=== PATIENT | male | born 1950 | race Caucasian/White ===

== ENCOUNTER 2020-05-11 07:06 | Day surgery (SDC) | payer MEDICARE ==
[2020-05-07 14:43] VITALS: BMI 28.5
[~2020-05-11 07:06] MED LIST: LACTATED RINGERS 1,000 ML IV SCH
[2020-05-11 07:48] VITALS: RESP 16; TEMP 96.8
[2020-05-11 07:49] LABS: Glucose,Whole Blood 103 mg/dL (75-99)
[2020-05-11] MEDS ORDERED: LIDOCAINE 1% (10MG/ML) FOR IV START INTRADERMA ONE (07:49)
[2020-05-11] MEDS ORDERED: PROPOFOL 10 MG/ML 20 ML VIAL IV ONE (08:02)
--- NOTE | 2020-05-11 08:42 | P.PCN ---
Date of Procedure: 05/11/20 Description of Procedure: Brief history: Patient is a pleasant 69-year-old male presenting for outpatient esophagogastroduodenoscopy and colonoscopy for evaluation of GERD and screening malignant neoplasm of the colon. He reports a long-standing history of GERD currently on omeprazole therapy. He reports the sensation of being full and some epigastric abdominal discomfort. He reports last colonoscopy 6 years ago. Family history of colon cancer in his brother. Procedure performed: Esophagogastroduodenoscopy with biopsy Colonoscopy with polypectomy Estimated blood loss: Minimal. Preoperative diagnosis: GERD, screening for malignant neoplasm of the colon, last colonoscopy 6 years ago, family history of colon cancer in his brother Anesthesia: MAC Procedure: After informed consent was obtained from the patient was brought into the endoscopy unit and IV sedation was administered by anesthesia under continuous monitoring. Initially upper endoscopy was done. The Olympus GF 190 video endoscope was inserted into the mouth and esophagus intubated without any difficulty and was gradually advanced into the stomach and duodenum and carefully examined. The bulb and second part of the duodenum appeared normal and biopsied. The scope was then withdrawn into the stomach adequately insufflated with air and upon careful examination the antrum and body, cardia and fundus appeared normal, except for patchy erythema in the antrum and body suggestive of mild gastritis biopsies taken. The scope was then withdrawn into the esophagus. The GE junction was located at 36 cm to the incisors and biopsied. 2 cm hiatal hernia noted. It appeared regular with no erythema er osions or ulcerations. Rest of the esophagus appeared normal. Patient tolerated the procedure well. At this time the patient continued to remain sedation. Initial digital rectal examination was normal. Olympus CF 190 video colonoscope was then inserted into the rectum and gradually advanced to the cecum without any difficulty. Careful examination was performed as the scope was gradually being withdrawn. The prep was excellent. The cecum, ascending colon, transverse colon, descending colon, sigmoid colon and rectum appeared normal, with a large amount of small and large mouth diverticula in the left colon. Diminutive 2 mm transverse colon polyp removed with cold forcep polypectomy. Retroflexion was performed in the rectum and no lesions were noted, low-grade internal hemorrhoids. Patient tolerated the procedure well. Impression: 1. Mild gastritis. Small Hiatal hernia. Biopsies of the duodenum, antrum body and GE junction. 2. Diminutive transverse colon polyp removed with cold forcep polypectomy. Moderate left colonic diverticulosis. Internal hemorrhoids. Recommendations: Findings of this examination were discussed with the patient as well as his family. Okay to resume diet. Okay to resume medications. Await pathology from biopsies and polypectomy. Recommend initiation of MiraLAX therapy for constipation as needed. Recommend repeat colonoscopy in 5 years for family history of colon cancer.
[2020-05-11] MEDS ORDERED: IV FLUID CONTINUATION 500 ML IV ONE (08:45)
[2020-05-11 09:02] VITALS: BP 131/74; PULSE 64
== END 2020-05-11 09:26 | disposition home or self-care (01) ==
LOC: ORWHC2ENDO 07:06
PROVIDERS: ATTEND Internal Medicine
DX: K29.50 Unspecified chronic gastritis without bleeding (principal); K44.9 Diaphragmatic hernia without obstruction or gangrene; K21.9 Gastro-esophageal reflux disease without esophagitis; K57.30 Diverticulosis of large intestine without perforation or abscess without bleeding; D12.3 Benign neoplasm of transverse colon; K64.8 Other hemorrhoids; E78.5 Hyperlipidemia, unspecified; E11.9 Type 2 diabetes mellitus without complications; Z12.11 Encounter for screening for malignant neoplasm of colon; Z80.0 Family history of malignant neoplasm of digestive organs; Z88.1 Allergy status to other antibiotic agents; Z79.84 Long term (current) use of oral hypoglycemic drugs; Z79.899 Other long term (current) drug therapy; Z79.82 Long term (current) use of aspirin
CPT/HCPCS: 88305; 45380; 43239; J2704

== ENCOUNTER 2020-08-08 01:29 | Observation (INO) | payer MEDICARE ==
[2020-08-08] MEDS ORDERED: MORPHINE SULFATE 4 MG/ML SYRINGE IV STA ×2 (02:08→04:28)
[2020-08-08] MEDS ORDERED: ASPIRIN 81 MG PO STA (02:08)
[2020-08-08] MEDS ORDERED: NITROGLYCERIN SL TABS 0.4 MG TAB SUBLINGUAL STA (02:08)
[2020-08-08] MEDS ORDERED: ONDANSETRON 4 MG/2 ML VIAL IVP STA (02:42)
[2020-08-08 02:52] LABS: Basophils # (A) 0.1 k/uL (0-0.2); Basophils % (A) 1 %; Eosinophils # (A) 0.5 k/uL (0-0.7); Eosinophils % (A) 5 %; HCT 43.6 % (39.0-53.0); HGB 14.4 gm/dL (13.0-17.5); Lymphocytes # (A) 1.4 k/uL (1.0-4.8); Lymphocytes % (A) 15 %; MCH 30.4 pg (25.0-35.0); MCHC 32.9 g/dL (31.0-37.0); MCV 92.3 fL (80.0-100.0); Mean Platelet Volume 6.9; Monocytes # (A) 0.7 k/uL (0-1.0); Monocytes % (A) 7 %; Neutrophils # (A) 6.5 k/uL (1.3-7.7); Neutrophils % (A) 70 %; Platelet Count 221 k/uL (150-450); RBC 4.73 m/uL (4.30-5.90); RDW 13.6 % (11.5-15.5); WBC 9.3 k/uL (3.8-10.6)
[2020-08-08 03:01] LABS: ALT 25 U/L (4-49); AST 25 U/L (17-59); African American GFR (CKD) >90 (>60 ml/min/1.73 sqM); Albumin 4.4 g/dL (3.5-5.0); Alkaline Phosphatase 65 U/L (38-126); Amylase 60 U/L (30-110); Anion Gap 11 mmol/L; Blood Urea Nitrogen 13 mg/dL (9-20); Calcium 9.6 mg/dL (8.4-10.2); Carbon Dioxide 24 mmol/L (22-30); Chloride 103 mmol/L (98-107); Glucose 125 mg/dL (74-99); INR 0.9 (<1.2); Lipase 101 U/L (23-300); Magnesium 1.6 mg/dL (1.6-2.3); Non-African American GFR(CKD) 89 (>60 ml/min/1.73 sqM); Partial Thromboplastin Time 22.6 sec (22.0-30.0); Prothrombin Time 10.2 sec (9.0-12.0); Sodium 138 mmol/L (137-145); Total Bilirubin 0.5 mg/dL (0.2-1.3); Total Protein 7.1 g/dL (6.3-8.2)
--- NOTE | 2020-08-08 03:31 | XR ---
EXAM: XR Chest, 1 View CLINICAL HISTORY: ITS.REASON XR Reason: chest pain TECHNIQUE: Frontal view of the chest. COMPARISON: No relevant prior studies available. FINDINGS: Lungs: Mild linear densities in both lung bases. Pleural space: No pneumothorax or pleural effusion is seen. Heart: The cardiac silhouette is mildly enlarged. Mediastinum: Unremarkable. Bones/joints: Unremarkable. Vasculature: Vascular and interstitial markings are prominent centrally. Upper abdomen: No pneumoperitoneum under the diaphragm. IMPRESSION: Mild bibasilar atelectasis or fibrosis. No acute airspace infiltrate is seen. Mild cardiomegaly without overt CHF.
[2020-08-08] MEDS ORDERED: NITROGLYCERIN OINT 1 INCH/GM PACKET TOPICAL STA (04:28)
[2020-08-08] MEDS ORDERED: NITROGLYCERIN SL TABS 0.4 MG TAB SUBLINGUAL PRN (05:07)
[2020-08-08] MEDS ORDERED: ENOXAPARIN 40 MG/0.4 ML SYRINGE SQ STA (05:07)
[2020-08-08] MEDS ORDERED: TEMAZEPAM 30 MG CAP PO PRN (05:10)
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
[2020-08-08] MEDS ORDERED: HEPARIN SODIUM,PORCINE 10,000 UNIT in SODIUM CHLORIDE 0.9% 1,000 ML IRRIGATION PRN (07:00)
[2020-08-08] MEDS ORDERED: HEPARIN SODIUM,PORCINE 2,500 UNIT in SODIUM CHLORIDE 0.9% 250 ML IRRIGATION PRN (07:00)
[2020-08-08] MEDS ORDERED: PANTOPRAZOLE 40 MG TABLET PO SCH (07:30)
[2020-08-08] MEDS: ATORVASTATIN 20 MG TAB PO SCH (08:23)
[2020-08-08] MEDS ORDERED: metFORMIN 500 MG TAB PO SCH (09:00)
[2020-08-08] MEDS: MORPHINE SULFATE 4 MG/ML SYRINGE IV PRN ×2 (09:03→16:52)
[2020-08-08] MEDS ORDERED: ALPRAZolam 0.5 MG TAB PO PRN (09:35)
[2020-08-08] MEDS ORDERED: SODIUM CHLORIDE 0.9% 1,000 ML in EMPTY BAG 1 BAG IV ONE (09:35)
[2020-08-08] MEDS ORDERED: HEPARIN SODIUM,PORCINE 30 ML 30 ML ONE (11:53)
[2020-08-08] MEDS ORDERED: HEPARIN SODIUM 1,000 UN/ML (10ML VL) ONE (11:53)
[2020-08-08] MEDS ORDERED: LIDOCAINE 1% INJ 10MG/ML (20 ML MDV) ONE (11:53)
[2020-08-08] MEDS ORDERED: VERAPAMIL 2.5 MG/ML 2 ML AMP ONE (11:53)
[2020-08-08] MEDS ORDERED: fentaNYL (PF) 50 MCG/ML 2 ML AMP ONE (11:54)
[2020-08-08] MEDS ORDERED: IV FLUID CONTINUATION 1,000 ML IV ONE (12:00)
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
[2020-08-08] MEDS ORDERED: fentaNYL (PF) 50 MCG/ML 2 ML AMP IV ONE (12:20)
[2020-08-08] MEDS ORDERED: NITROGLYCERIN SL TABS 0.4 MG TAB SUBLINGUAL ONE ×2 (12:20→12:22)
[2020-08-08] MEDS ORDERED: MIDAZOLAM 2 MG/2 ML VIAL IV ONE (12:20)
[2020-08-08] MEDS ORDERED: LIDOCAINE 1% INJ 10MG/ML (20 ML MDV) SQ ONE (12:27)
[2020-08-08] MEDS ORDERED: VERAPAMIL SYRINGE (5 MG/10 ML) INTRAARTER ONE (12:30)
[2020-08-08] MEDS: PANTOPRAZOLE 40 MG/10 ML VIAL IVP SCH (12:40)
[2020-08-08] MEDS: INSULIN ASPART (NovoLOG) 100 UNIT/ML VIAL SQ SCH ×2 (12:40→17:34)
[2020-08-08] MEDS ORDERED: IOPAMIDOL-370 125ML BTL INJ ONE (12:46)
[2020-08-08] MEDS ORDERED: RX INFO: IV CONTRAST WAS GIVEN 1 EACH MISC MISCELLANE PRN (12:52)
[2020-08-08] MEDS: SODIUM CHLORIDE 0.9% 1,000 ML IV SCH (13:26)
[2020-08-08 15:05] LABS: Amylase 47 U/L (30-110); Lipase 211 U/L (23-300)
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
--- NOTE | 2020-08-08 16:07 | P.CARDCATH ---
Date of Procedure: 08/08/20 Preoperative Diagnosis: Unstable angina Postoperative Diagnosis: Minimal coronary artery disease Procedure(s) Performed: Left heart catheterization without left ventriculography Description of Procedure: HISTORY: This is a 70-year-old gentleman with history of hyperlipidemia and type 2 diabetes mellitus who was admitted to the hospital with recurrent chest pain relieved with nitroglycerin CONSENT:I have discussed the risks, benefits and alternative therapies for the above-mentioned procedure and for both sedation/analgesia as well as necessary blood product administration, if indicated, as they pertain to this patient. T he patient has indicated understanding and acceptance of the risks and procedures discussed. PROCEDURE: Patient was brought to the lab in a fasting state. Patient was given some IV sedation. The right wrist is infiltrated with lidocaine and right femoral artery was entered using Seldinger technique. A 6-Macedonian catheter was left in place and selective coronary arteriography was performed. Patient tolerated the procedure well. TR band l was applied for hemostasis. No immediate complications were noted and patient was transferred to [facility] in a stable condition Conscious Sedation: Versed 2mg Fentanyl 50 g Duration 22minutes HEMODYNAMICS: The aortic pressure is about 130/70 SELECTIVE CORONARY ARTERIOGRAPHY: LEFT MAIN: Normal length and free of occlusive disease THE LEFT ANTERIOR DESCENDING CORONARY ARTERY: . Fair caliber vessel with minimal intimal plaque THE LEFT CIRCUMFLEX AND IS CORONARY ARTERY: Good caliber vessel without any significant obstructive disease THE RIGHT CORONARY ARTERY: Good caliber vessel and nondominant. Mild intimal plaque and 20-30% stenosis in the proximal and midportion LEFT VENTRICULOGRAPHY: Performed FINAL IMPRESSION: . Mild coronary artery disease. No critical lesions PLAN: Continue medical therapy and this factor modification. Consider GI evaluation and computed tomography scan of the chest, if patient continues to have chest pain PROGNOSIS: . Fair
[2020-08-08] MEDS: SUCRALFATE 1 GM TAB PO SCH (16:52)
[2020-08-08 17:24] LABS: Glucose,Whole Blood 143 mg/dL (75-99)
[2020-08-08] MEDS ORDERED: NON FORMULARY DRUG (Metformin Hcl Er 500 MG Tab.Er.24h) PO SCH (17:30)
[2020-08-08] MEDS: METOPROLOL TARTRATE 25 MG TAB PO SCH (20:31)
[2020-08-09] MEDS: SODIUM CHLORIDE 0.9% 1,000 ML IV SCH (05:20)
[2020-08-09] MEDS: INSULIN ASPART (NovoLOG) 100 UNIT/ML VIAL SQ SCH ×2 (07:37→12:06)
[2020-08-09] MEDS: ATORVASTATIN 20 MG TAB PO SCH ×2 (08:19→08:20)
[2020-08-09] MEDS: PANTOPRAZOLE 40 MG/10 ML VIAL IVP SCH (08:19)
[2020-08-09] MEDS: METOPROLOL TARTRATE 25 MG TAB PO SCH (08:20)
[2020-08-09] MEDS: SUCRALFATE 1 GM TAB PO SCH (08:20)
[2020-08-09] MEDS ORDERED: ASPIRIN 81 MG PO SCH (09:00)
[2020-08-09] MEDS ORDERED: ASPIRIN 325 MG TAB PO SCH (09:00)
[2020-08-09] MEDS ORDERED: LORATADINE 10 MG TAB PO SCH (09:00)
--- NOTE | 2020-08-09 09:23 | CONS ---
CONSULTATION DATE OF SERVICE: 08/09/2020 REQUESTING PHYSICIAN: Dr. Mac. REASON FOR CONSULTATION: Severe chest pain. HISTORY OF PRESENT ILLNESS: The patient is a 70-year-old pleasant white male with history of hypertension, hyperlipidemia, diabetes mellitus, as well as longstanding history of GERD for almost 20 years duration, admitted to the hospital with severe chest pain that was pleuritic in nature and started 2 days ago. He was having dinner with his friends and developed severe midsternal chest pain, worse with deep inspiration. He came to the emergency room and subsequently he was admitted to the hospital and was seen by Cardiology and cardiac catheterization yesterday that showed mild coronary artery disease. GI is consulted to rule out any GI causes for his symptoms. This morning he is feeling much better. He still has some pain with deep inspiration, but much better than before. He denies any heartburn. He reports no dysphagia or odynophagia. He has a longstanding history of GERD and he usually takes Nexium 40 mg daily for almost 20 years duration and medications have been working reasonably well. He did have an EGD and colonoscopy by Dr. Pineda in April of 2020 that revealed mild antral gastritis but no evidence of esophagitis or peptic ulcer disease. Also there was evidence of small hiatal hernia noted. He had small colon polyps removed. PAST MEDICAL HISTORY: Significant for diabetes mellitus, hypertension, gastroesophageal reflux disease and hyperlipidemia. MEDICATIONS: At home, Glucophage, Crestor, omeprazole, Zyrtec, and aspirin. ALLERGIES: ATORVASTATIN, AMOXICILLIN, MOLD. SOCIAL HISTORY: No smoking. Socially drinks alcohol. FAMILY HISTORY: Mother unremarkable. Brother had colon cancer. REVIEW OF SYSTEMS: CARDIOPULMONARY: No chest pain or shortness of breath. : No dysuria or hematuria. MUSCULOSKELETAL: Unremarkable. SKIN: Unremarkable. ENDOCRINE: Unremarkable PSYCHIATRIC: Unremarkable. NEUROLOGY: Unremarkable. ENT/VISION: Unremarkable. CONSTITUTIONAL: No recent weight loss. GI: As mentioned above. PAST SURGICAL HISTORY: He did have EGD and colonoscopy in april of 2020, left knee arthroscopy. PHYSICAL EXAMINATION: GENERAL: He appears comfortable. No apparent distress. VITAL SIGNS: Stable. Blood pressure is 151/86, pulse rate 79, temperature 98. HEENT: Examination unremarkable. Conjunctivae are pink. Sclerae anicteric. Oral cavity no lesions. NECK: No JVD or lymph node enlargement. CHEST: Clear to auscultation. HEART: Regular rate and rhythm. ABDOMEN: Soft, it was nontender, nondistended. Bowel sounds are positive. No organomegaly. EXTREMITIES: No pedal edema. SKIN: No rashes. NEURO: She is alert and oriented x3. No focal deficits. LABS: WBC 9.3, hemoglobin 14, platelets normal. AST, ALT, T-bilirubin, alkaline phosphatase are within normal limits. Coronavirus PCR is negative. Cardiac catheterization yesterday showed mild coronary artery disease. IMPRESSION: This patient presented to the hospital with severe atypical chest pain that happened 2 nights ago. The pain was mostly in the midsternal area, pleuritic in nature and was very intense. Troponins were negative. Cardiac catheterization was performed on an emergency basis which showed mild coronary artery disease. His symptoms are gradually improving. Serum transaminases are within normal limits. The patient has a longstanding history of GERD and possibility of atypical GERD cannot be excluded. Also, possibility of gallbladder pathology needs to be considered. RECOMMENDATIONS: 1. Increase the Protonix to 40 mg twice daily. 2. Continue with a heart healthy diet. 3. No need for EGD at this time. 4. We will also obtain ultrasound of the gallbladder to rule out any gallstones. 5. Monitor the patient closely and will follow with you. Thank you for this consultation. MMODL / IJN: [id number] /
[2020-08-09 09:53] LABS: Chol/HDL Ratio 3.89; LDL Cholesterol,Calculated 68.2 mg/dL (0.0-131.0); VLDL Calculation 32.8 mg/dL (5.00-40.00)
--- NOTE | 2020-08-09 12:43 | P.DS ---
Providers Date of admission: 08/08/20 05:07 Expected date of discharge: 08/09/20 Attending physician: Luis E Mac Consults: 08/08/20 05:07 Consult Physician Routine Consulting Provider: Bret Wayne Consult Reason/Comments: chest pain Do you want consulting provider notified?: Yes 08/08/20 12:54 Consult Physician Routine Consulting Provider: Porsche Vora Consult Reason/Comments: GI reflux Do you want consulting provider notified?: Yes Primary care physician: Luis E Mac Hospital Course: This is a 70-year-old male with a previous medical history significant for hyperlipidemia, diabetes mellitus type 2, history of GERD with esophagitis, patient was in his usual state of health about yesterday when he went to have a dinner with his friends consistent of the official and rise and he had 2 glasses of wine prior to that, he still developed to have a significant mid sternal chest pain and he did not take enough deep breath at that time, associated with increased shortness of breath, patient decided to leave the dinner and he went back home and he took 5 Rolaids along with Coke and he did not feel any better, he decided come to the emergency burn for evaluation, patient appears to be a bit apprehensive take, he is complaining of increased pain in the middle sternal area radiating up to the neck, associated with minimal shortness breath, he has no coughing, he has almost pleurisy and he is not able to take enough deep breath, patient is feeling full in the stomach, and he had a good bowel movement yesterday, he has no hemoptysis or hematochezia, he stated that he had a stress test many years ago and was negative, patient was seen in the emergency department had a twelve-lead EKG that showed sinus rhythm with multiple PVCs and a first-degree AV block, back negative, chest x-ray did not show any evidence of acute of normalities except for cardiomegaly, I believe the patient will need to have a CT angiography of the chest and abdomen to rule out any aortic dissection we'll discontinue his metformin at this time, patient was seen already in consultation by cardiology would need to go for left heart catheterization for further evaluation. Patient stated that he did travel to his constant about a week and a half ago and he drove all the way but he had no symptoms after that. 08/09: Patient underwent left heart catheterization yesterday 08/08/2020 that showed minimal intimal plaque in the LAD, and renal disease 20-30% and RCA, patient was started on Protonix 40 mg IV push every 24 hours, he was seen in consultation by Gastroenterology we added Carafate 1 g orally twice every day, he is feeling a lot better today, he is scheduled to go for ultrasound of the gallbladder, and the patient can be discharged home with follow-up with us as an outpatient. Discharge diagnoses: 1. Chest pain noncardiac status post left heart catheterization that showed minimal disease in the RCA 20-30%. 2. Severe GERD with esophagitis and ventral hernia. 3. Hypertension and hypertensive cardiovascular disease. 4. Hyperlipidemia. 5. Diabetes mellitus type 2. 6. Overweight. Patient Condition at Discharge: Good Plan - Discharge Summary Discharge Rx Participant: No New Discharge Prescriptions: No Action Rosuvastatin [Crestor] 10 mg PO DAILY Omeprazole 40 mg PO DAILY Aspirin 81 mg PO DAILY metFORMIN HCL ER [Glucophage Xr] 500 mg PO BID-W/MEALS Cetirizine HCl [Zyrtec] 10 mg PO DAILY Discharge Medication List Aspirin 81 mg PO DAILY 05/07/20 [History] Omeprazole 40 mg PO DAILY 05/07/20 [History] Rosuvastatin [Crestor] 10 mg PO DAILY 05/07/20 [History] Cetirizine HCl [Zyrtec] 10 mg PO DAILY 08/08/20 [History] metFORMIN HCL ER [Glucophage Xr] 500 mg PO BID-W/MEALS 08/08/20 [History] Follow up Appointment(s)/Referral(s): Luis E Mac MD [Primary Care Provider] - 1-2 days Lexi Romo MD [STAFF PHYSICIAN] - 1 Week Patient Instructions/Handouts: Chest Pain (ED)
--- NOTE | 2020-08-09 13:14 | P.PN ---
Subjective Progress Note Date: 08/09/20 HISTORY OF PRESENT ILLNESS: Patient underwent cardiac cath yesterday revealing mild coronary artery disease with no nuchal lesions. Patient examined at this point the bedside. He denies chest pain or pressure. Denies shortness of breath. Vital signs are stable. PHYSICAL EXAM: VITAL SIGNS: Reviewed. GENERAL: Well-developed in no acute distress. NECK: Supple. No JVD or thyromegaly LUNGS: Respirations even and unlabored. Lungs essentially clear to auscultation bilaterally. HEART: Regular rate and rhythm. S1 and S2 heard. EXTREMITIES: Normal range of motion. No clubbing or cyanosis. Peripheral pulses intact. No lower extremity edema. Right radial cath site with pulse present ASSESSMENT: Chest pain Mild nonobstructive coronary artery disease Diabetes mellitus Hyperlipidemia PLAN: Continue current cardiac medications Patient is stable for discharge home today from a cardiac standpoint He is to follow up on an outpatient basis Nurse practitioner note has been reviewed by physician. Signing provider agrees with the documented findings, assessment, and plan of care. Objective - Vital Signs Vital signs: Vital Signs Temp 98.3 F 08/09/20 07:00 Pulse 79 08/09/20 07:37 Resp 16 08/09/20 07:37 BP 151/75 08/09/20 07:00 Pulse Ox 96 08/09/20 07:14 Intake & Output 08/08/20 08/09/20 08/09/20 18:59 06:59 18:59 Intake Total 200 Balance 200 Intake: IV 200 Other: # Voids 2 3 3 - Labs CBC & Chem 7: 08/08/20 02:12 08/08/20 02:12 Labs: Abnormal Lab Results - Last 24 Hours (Table) 08/08/20 08/08/20 Range/Units 02:12 17:22 POC Glucose (mg/dL) 143 H (75-99) mg/dL Triglycerides 164.0 H (0.0-149.0) mg/dL HDL Cholesterol 35.0 L (40.0-60.0) mg/dL
[2020-08-09 15:45] VITALS: BP 127/75; PULSE 58; RESP 18; TEMP 97.9
--- NOTE | 2020-08-09 15:45 | US ---
EXAMINATION TYPE: US gallbladder DATE OF EXAM: 08/09/2020 COMPARISON: NONE CLINICAL HISTORY: r/o gallstones.. Exam done portable. EXAM MEASUREMENTS: Liver Length: 14.6 cm Gallbladder Wall: 0.2 cm CBD: 0.4 cm Right Kidney: 11.7 x 5.2 x 5.5 cm Difficult and limited study due to patient body habitus and overlying bowel gas Pancreas: obscured by overlying midline bowel gas Liver: scanned intercostally, visualized portions appear wnl Gallbladder: wnl. No definite gallstones, gallbladder wall thickening or pericholecystic fluid. Evidence for sonographic Saini's sign: no CBD: wnl Right Kidney: wnl IMPRESSION: No significant abnormality.
[2020-08-09] MEDS ORDERED: PANTOPRAZOLE 40 MG/10 ML VIAL IVP SCH (21:00)
[2020-08-10] MEDS ORDERED: LOSARTAN 50 MG TAB PO SCH (09:00)
== END 2020-08-09 16:56 | disposition home or self-care (01) ==
LOC: EC 01:29 → 6NMEDSUR 05:07
PROVIDERS: ADMIT Internal Medicine; ATTEND Internal Medicine
DX: R07.89 Other chest pain (principal); K21.00 Gastro-esophageal reflux disease with esophagitis, without bleeding; K43.9 Ventral hernia without obstruction or gangrene; R09.1 Pleurisy; I11.9 Hypertensive heart disease without heart failure; I49.3 Ventricular premature depolarization; I44.0 Atrioventricular block, first degree; E11.9 Type 2 diabetes mellitus without complications; I25.10 Atherosclerotic heart disease of native coronary artery without angina pectoris; K44.9 Diaphragmatic hernia without obstruction or gangrene; E78.5 Hyperlipidemia, unspecified; E66.3 Overweight; Z68.29 Body mass index [BMI] 29.0-29.9, adult; Z20.822 Contact with and (suspected) exposure to COVID-19; Z79.82 Long term (current) use of aspirin; Z79.84 Long term (current) use of oral hypoglycemic drugs; Z79.899 Other long term (current) drug therapy; Z88.0 Allergy status to penicillin; Z88.8 Allergy status to other drugs, medicaments and biological substances; Z91.048 Other nonmedicinal substance allergy status; Z87.891 Personal history of nicotine dependence; Z87.09 Personal history of other diseases of the respiratory system; Z72.89 Other problems related to lifestyle; Z98.890 Other specified postprocedural states; Z86.010 Personal history of colon polyps; Z87.19 Personal history of other diseases of the digestive system; Z82.49 Family history of ischemic heart disease and other diseases of the circulatory system; Z80.0 Family history of malignant neoplasm of digestive organs
CPT/HCPCS: 96372; 93005 ×2; 96376; 96374; 96375; 99285; 36415; 94760; 93454; 85379; 80061; 80053; 82150; 83690; 83735; 84484; 85025; 85610; 85730; 87635; 71045; 76705; G0378 ×2; C1894; C1769; J2250; J2270; J2405; J2001; J1650; J3010; J1644; C9113; Q9967

== ENCOUNTER → 2023-07-07 | Outpatient (CLI) | payer MEDICARE ==
--- NOTE | 2023-07-07 18:06 | CA ---
Transthoracic Echo Report Name: Orlando Campos Age: 72 Gender: M : 1950 Exam Date: 07/07/2023 14:59 Exam Location: [facility] Ht (in): 70 Wt (lb): 195 Ordering Physician: Luis E Mac MD Attending/Referring Phys: [employer] Geovanna Cohen RDCS Procedure CPT: Indications: I65.23 OCCLUSION AND STENOSIS OF CAROTID Cardiac Hx: Technical Quality: Good Contrast 1: Total Dose (mL): Contrast 2: Total Dose (mL): MEASUREMENTS (Male / Female) Normal Values 2D ECHO LV Diastolic Diameter PLAX 5.1 cm 4.2 - 5.9 / 3.9 - 5.3 cm LV Systolic Diameter PLAX 3.4 cm IVS Diastolic Thickness 1.2 cm 0.6 - 1.0 / 0.6 - 0.9 cm LVPW Diastolic Thickness 1.3 cm 0.6 - 1.0 / 0.6 - 0.9 cm LV Relative Wall Thickness 0.5 RV Internal Dim ED PLAX 3.2 cm LVOT Diameter 2.4 cm Aortic Root Diameter 3.5 cm LV Diastolic Volume MOD BP 126.3 cm??? 67 - 155 / 56 - 104 cm??? LV Systolic Volume MOD BP 57.1 cm??? 22 - 58 / 19 - 49 cm??? LV Ejection Fraction MOD BP 54.8 % >= 55 % LV Cardiac Index MOD BP 2429.7 cm???/min???m??? LV Diastolic Volume MOD 4C 136.0 cm??? LV Systolic Volume MOD 4C 63.4 cm??? LV Ejection Fraction MOD 4C 53.4 % LV Cardiac Index MOD 4C 2549.1 cm???/min???m??? LV Diastolic Length 4C 9.3 cm LV Systolic Length 4C 7.7 cm LV Diastolic Volume MOD 2C 112.4 cm??? LV Systolic Volume MOD 2C 50.3 cm??? LV Ejection Fraction MOD 2C 55.3 % LV Cardiac Index MOD 2C 2181.8 cm???/min???m??? LV Diastolic Length 2C 8.9 cm LV Systolic Length 2C 7.5 cm Ascending Aorta Diameter 3.8 cm DOPPLER AV Peak Velocity 115.8 cm/s AV Peak Gradient 5.4 mmHg AV Mean Velocity 83.3 cm/s AV Mean Gradient 3.1 mmHg AV Velocity Time Integral 22.7 cm LVOT Peak Velocity 93.1 cm/s LVOT Peak Gradient 3.5 mmHg LVOT Velocity Time Integral 18.1 cm LVOT Stroke Volume 80.3 cm??? LVOT Stroke Volume Index 38.9 ml/m??? LVOT Cardiac Index 2818.1 cm???/min???m??? AV Area Cont Eq vti 3.5 cm??? AV Area Cont Eq pk 3.6 cm??? Mitral E Point Velocity 45.0 cm/s Mitral A Point Velocity 70.3 cm/s Mitral E to A Ratio 0.6 MV Deceleration Time 188.1 ms MV E' Velocity 5.0 cm/s Mitral E to MV E' Ratio 9.0 PV Peak Velocity 112.9 cm/s PV Peak Gradient 5.1 mmHg FINDINGS Left Ventricle Left ventricular ejection fraction is estimated at 55-60 %. Mildly increased septal wall thickness. Left ventricular cavity size normal. No obvious regional wall motion abnormalities. Right Ventricle Normal right ventricular size and function. Unable to estimate the right ventricular systolic pressure. Right Atrium Normal right atrial size. Left Atrium Borderline enlarged left atrium. Mitral Valve Structurally normal mitral valve. No evidence for mitral valve prolapse. No mitral stenosis. Mild mitral regurgitation. Aortic Valve Trileaflet aortic valve. No aortic valve stenosis or regurgitation. Tricuspid Valve Structurally normal tricuspid valve. No tricuspid stenosis. Trace tricuspid regurgitation. Pulmonic Valve Structurally normal pulmonic valve. No pulmonic stenosis. No pulmonic regurgitation. Pericardium No pericardial effusion Aorta Normal size aortic root and proximal ascending aorta. CONCLUSIONS 1. Normal left ventricular size and systolic function 2. Mild mitral regurgitation ventricle size and systolic function Previewed by: Dr. Yamileth Jones MD (Electronically Signed) Final Date: 07 Jul 2023 18:05
--- NOTE | 2023-07-08 02:33 | US ---
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 Indirect Doppler criteria was utilized. FINDINGS: EXAM MEASUREMENTS: RIGHT: Peak Systolic Velocity (PSV) cm/sec ----- Right CCA: 63.7 ----- Right ICA: 75.9 ----- Right ECA: 80.3 ICA/CCA ratio: 1.2 RIGHT: End Diastole cm/sec ----- Right CCA: 17.0 ----- Right ICA: 29.5 ----- Right ECA: 7.6 LEFT: Peak Systolic Velocity (PSV) cm/sec ----- Left CCA: 58.9 ----- Left ICA: 58.5 ----- Left ECA: 47.2 ICA/CCA ratio: 1.0 LEFT: End Diastole cm/sec ----- Left CCA: 17.4 ----- Left ICA: 20.1 ----- Left ECA: 4.6 VERTEBRALS (direction of flow): Right Vertebral: Antegrade Left Vertebral: Antegrade Rhythm: Normal No significant stenosis IMPRESSION: No ultrasound evidence for hemodynamically significant stenosis of the visualized bilateral carotid a rterial systems. Criteria for Assigning % of Stenosis / Diameter reduction (Estimation based on the indirect measurements of the internal carotid artery velocities (ICA PSV). 1. Normal (no stenosis)=ICA PSV < 125 cm/s: ratio < 2.0: ICA EDV<40 cm/s. 2. Less than 50% stenosis=ICA PSV < 125 cm/s: ratio < 2.0: ICA EDV<40 cm/s. 3. 50 to 69% stenosis=ICA PSV of 125 to 230 cm/s: ration 2.0 ? 4.0: ICA EDV 40-100 cm/s. 4. Greater than 70% stenosis to near occlusion= ICA PSV > 230 cm/s: ratio > 4.0: ICA EDV > 100 cm/s. 5. Near occlusion= ICA PSV velocities may be low or undetectable: variable ratio and ICA EDV. 6. Total occlusion=unable to detect flow.
== END | disposition home or self-care (01) ==
LOC: RADECHMAIN 14:38
PROVIDERS: ATTEND Internal Medicine
DX: I65.23 Occlusion and stenosis of bilateral carotid arteries (principal); I34.0 Nonrheumatic mitral (valve) insufficiency
CPT/HCPCS: 93306; 93880